=== PATIENT | female | born 1945 | race Caucasian/White ===

== ENCOUNTER 2016-12-03 07:16 | Emergency (ER) | payer MEDICARE, BC ==
--- NOTE | 2017-01-15 21:36 | ER ---
ADMIT: 12/03/2016 RM/LOC: ER [facility] MR#: [id number] [address] [id number] PINKY CLEMENS [address] [place] [address] Emergency Room Report SEX: F AGE: 71 : 1945 DATE: 12/03/2016 A 71-year-old female comes to the Emergency Department with complaints of high blood pressure. She apparently heard Dr. Delaney tell that her blood pressure was high, and she was instructed to go to the Emergency Department for further evaluation. See T-sheet for remainder of history and physical. The patient is diagnosed with anxiety and hypertension. She is encouraged to follow up with her doctor this week for further evaluation of her hypertension. Rashaad Godwin MD/ darion JOB #: [id number] CC: Rashaad Godwin MD, Attending Physician Asia Sherman APRN, Family Physician
== END 2016-12-03 12:05 | disposition home or self-care (01) ==
LOC: ER 07:16
DX: I10 Essential (primary) hypertension (principal); F41.9 Anxiety disorder, unspecified; Z90.710 Acquired absence of both cervix and uterus

== ENCOUNTER 2017-01-20 13:37 | Emergency (ER) | payer MEDICARE, BC ==
--- NOTE | 2017-01-21 16:12 | ER ---
ADMIT: 01/20/2017 RM/LOC: ER [facility] MR#: [id number] [address] [address] PINKY CLEMENS [address] [place] [address] Emergency Room Report SEX: F AGE: 71 : 1945 DATE: 01/20/2017 BRIEF ADDENDUM: Please see my T-sheet for complete review of systems, past medical history, and physical exam. CHIEF COMPLAINT: Chest discomfort. HISTORY OF PRESENT ILLNESS: This is a pleasant 71-year-old white female, who presents with 2 days duration of chest heaviness. The patient states she noticed this worsening about 2 days ago. Describes it as some tightness and dull ache in her chest without radiation. Does state she recently traveled to [place] and since that time, has had some periscapular back pain and difficulty breathing when she gets out of bed in the morning. Denies any radiation. Does notice the discomfort is associated with shortness of breath. Does not notice any nausea vomiting, diaphoresis, or palpitations with this. Denies any recent cough. States this is worse with deep breathing and exertion. Has not found anything to make this better. She did see Meryl Wallace for some of her back pain who recommended anti-inflammatories and conservative care. She states this has gotten a little bit better. She does follow with Dr. Mir at [facility] for some arrhythmia type issues. Denies any cardiac history in terms of coronary artery disease or OK. She did have a catheterization, she estimates 5 years ago with no findings of any blockage. No diabetes. No hyperlipidemia. She is treated for hypertension. She does have chronic lower leg edema. She does have a family history of coronary artery disease. Her father suffered an OK at 35. She is a former smoker with 30 pack year history. COURSE IN THE EMERGENCY ROOM: The patient was seen and examined. She does have initial blood pressure 193/77, she is in no acute distress, however, still anxious. Her neck is soft and supple. She does have a scar from a right-sided carotid endarterectomy. No respiratory distress. Breath sounds normal. No wheezes, rhonchi, or rales. Heart is regular rate and rhythm. No murmurs, gallops, or rub. She does have some tenderness to palpation of her anterior chest. Abdomen is nontender. Skin is warm and dry. She does have 2+ pitting edema in the lower extremities bilaterally. I did proceed to get some laboratory studies on her today. White count 7.6, hemoglobin 11.3, hematocrit 35.1, and platelets 248. Sodium 143, potassium 4.2, CO2 of 25, BUN 26, creatinine 1.1. Liver enzymes normal. CK was 75, CK-MB 0.9. Troponin was less than 0.015. Did get a D-dimer on her, came back 1.45. Given her recent travel history and lower leg edema, I did proceed to get a CTA of her chest which was negative for any PE but did reveal a left lower lobe pneumonia. I did start her on an IV, offered morphine for pain control, she denied this. Her blood pressure did resolve into the 170s as she relaxed ADMIT: 01/20/2017 RM/LOC: ER [facility] MR#: [id number] [address] [place] [id number] PINKY CLEMENS [address] [place] [address] Emergency Room Report SEX: F AGE: 71 : 1945 throughout her stay. IMPRESSION: 1. Left lower lobar pneumonia. 2. Hypertension. DISPOSITION: Patient will be started on Levaquin 750 mg 1 tab p.o. daily for 5 days. She is to follow up with her primary care next week. Radiologist did recommend repeat CT scan in 3 months for some atypical findings in the left lower lung base. The patient can use Tylenol as needed for pain. Increase her fluids as tolerated. Activity as tolerated. Continue all her home medications. Return with any worsening signs or symptoms. She was discharged from the department in stable condition. MARCEL Albarran / Benjy St MD / darion JOB #: [id number] CC: Benjy St MD, Attending Physician
== END 2017-01-20 16:31 | disposition home or self-care (01) ==
LOC: ER 13:37
DX: J18.1 Lobar pneumonia, unspecified organism (principal); I10 Essential (primary) hypertension; Z90.49 Acquired absence of other specified parts of digestive tract; Z90.710 Acquired absence of both cervix and uterus

== ENCOUNTER 2017-03-11 06:09 | Emergency (ER) | payer MEDICARE, BC ==
--- NOTE | 2017-03-11 19:59 | ER ---
ADMIT: 03/11/2017 RM/LOC: ER [facility] MR#: [id number] [address] [address] PINKY CLEMENS [address] [place] [address] Emergency Room Report SEX: F AGE: 72 : 1945 DATE: 03/10/2017 HISTORY OF PRESENT ILLNESS: The patient is a 72-year-old female with a past medical history of COPD, GERD, and diverticulitis came to the ER with chief complaint of left lower quadrant pain, the patient states also for the last 2 days, she had diarrhea, which was loose and nonbloody and states that since last night, she had left lower quadrant pain, which is intermittent and [id number] in severity, the patient denies any nausea or vomiting or any fever. PHYSICAL EXAMINATION: GENERAL: In the ER, the patient was afebrile, in no obvious distress, but the patient states she has continuous pain in the left lower quadrant. HEAD AND NECK: Normal. LUNGS: Clear bilaterally and normal. HEART: Normal heart sounds. ABDOMEN: Soft and there is no rebound or guarding, but there is very mild tenderness on the left lower quadrant. Lab work was sent, and the patient was signed off to next shift to follow up on the pain control and the lab work and dispo the patient accordingly. Jony Johnson MD/ darion JOB #: [id number] CC: Jony Johnson MD, Attending Physician Asia Sherman APRN, Family Physician
--- NOTE | 2017-03-18 18:56 | ER ---
ADMIT: 03/11/2017 RM/LOC: ER [facility] MR#: [id number] [address] [facility] [address] [place], [place] [address] PINKY CLEMENS [address] [place] [address] Emergency Room Report SEX: F AGE: 72 : 1945 DATE: 03/11/2017 ADDENDUM: A 72-year-old white female coming in with abdominal pain. I refer you to Dr. Johnson's T-sheet and his dictation. CBC, Chemistry, lipase normal. She does have positive UTI. We put her on Cipro 500 q.12 x7 days. She has an appointment with her doctor this week, which she should continue to use. CONDITION ON DISCHARGE: Good. Jemal Weiss MD/ darion JOB #: [id number] CC: Jony Johnson MD, Attending Physician Asia Sherman APRN, Family Physician
== END 2017-03-11 10:40 | disposition home or self-care (01) ==
LOC: ER 06:09
DX: N30.90 Cystitis, unspecified without hematuria (principal); R10.32 Left lower quadrant pain; I10 Essential (primary) hypertension; J44.9 Chronic obstructive pulmonary disease, unspecified; F41.9 Anxiety disorder, unspecified; Z90.49 Acquired absence of other specified parts of digestive tract; Z90.710 Acquired absence of both cervix and uterus; Z98.890 Other specified postprocedural states; Z79.82 Long term (current) use of aspirin; Z79.899 Other long term (current) drug therapy